=== PATIENT | male | born 1950 | race African-American/Black ===

== ENCOUNTER 2017-05-16 12:10 | Day surgery (SDC) | payer OTHER ==
[2017-05-15 14:57] VITALS: BMI 32.8
[2017-05-16 12:32] LABS: BASO % 0.7 % (0-2.0); EOS % 3.8 % (0-4.5); HEMATOCRIT 51.2 % (35.4-49); HEMOGLOBIN 16.5 GM/dL (11.7-16.9); LYMPH % 15.6 % (8-40); MCH 30.4 pg (25.7-33.7); MCHC 32.3 g/dl (32.0-35.9); MEAN PLT VOLUME 9.2 fl (7.5-11.1); MONO % 8.5 % (3.8-10.2); NEUT % 71.4 % (42.8-82.8); PLATELET COUNT 150 K/MM3 (134-434); RBC 5.44 M/mm3 (4.00-5.60); RDW 14.5 % (11.9-15.9); WHITE BLOOD COUNT 7.8 K/mm3 (4.0-10.0)
[2017-05-16 12:47] LABS: INR 1.06 (0.82-1.09)
[2017-05-16 13:09] VITALS: TEMP 98.2
[2017-05-16 17:43] VITALS: BP 114/70; PULSE 70
--- NOTE | 2017-05-18 11:59 | PATH ---
Cytology Non-Gynecological Report Patient Name: KIRSTY TORRES [facility]. Rec. #: [id number] /Age/Gender: 1950 (Age: 66) / M Account: [id number] Location: RADIOLOGY Taken: 05/16/2017 Received: 05/17/2017 Reported: 05/18/2017 Physicians: Chana August M.D. Specimen(s) Received RENAL CYST FLUID Clinical History Renal cyst Final Diagnosis RENAL CYST, ASPIRATION: SATISFACTORY FOR EVALUATION. BENIGN (NO MALIGNANT CELLS IDENTIFIED. MARKEDLY HYPOCELLULAR SPECIMEN WITH SCANT BENIGN EPITHELIAL CELLS, ALONG WITH RED BLOOD CELLS AND WHITE BLOOD CELLS. Comment: Recommend correlation with clinical and radiologic findings and follow up as clinically indicated. Electronically Signed Rafat George M.D. Gross Description Approximately 50 cc of yellow fluid received fixed in 50% alcohol. Two cytofunnels and one cellblock prepared.
== END 2017-05-16 16:30 | disposition home or self-care (01) ==
LOC: JRADIR 12:10
PROVIDERS: ATTEND Urology
PROC: 0T903ZX Drainage of Right Kidney, Percutaneous Approach, Diagnostic (ICD-10-PCS; principal; 2017-05-16)
DX: N28.1 Cyst of kidney, acquired (principal)
CPT/HCPCS: 10022; 36415; 50390; 76098-TC-FY; 77012-TC; 82565; 85025; 85610; 87070; 87075; 87205; 87899; 88108

== ENCOUNTER 2022-09-21 04:44 | Day surgery (SDC) | payer OTHER ==
[2022-09-15 15:45] VITALS: BMI 38.3
[2022-09-21 08:50] LABS: BASO % 0.6 % (0-2.0); EOS % 3.2 % (0-4.5); HEMOGLOBIN 16.2 GM/dL (11.7-16.9); LYMPH % 13.9 % (8-40); MCH 31.5 pg (25.7-33.7); MCHC 33.7 g/dl (32.0-35.9); MEAN CELL VOLUME 93.4 fl (80-96); MEAN PLT VOLUME 9.6 fl (7.5-11.1); MONO % 8.2 % (3.8-10.2); NEUT % 74.1 % (42.8-82.8); PLATELET COUNT 161 10^3/uL (134-434); RBC 5.14 M/mm3 (4.00-5.60); RDW 14.3 % (11.9-15.9); WHITE BLOOD COUNT 8.6 K/mm3 (4.0-10.0)
[2022-09-21 08:56] LABS: INR 1.15 (0.83-1.09); PROTHROMBIN TIME (PATIENT) 13.3 SEC (9.7-13.0)
[2022-09-21 12:00] VITALS: RESP 18
[2022-09-21 12:37] VITALS: BP 120/80; PULSE 68; TEMP 98
== END 2022-09-21 13:27 | disposition home or self-care (01) ==
LOC: JRADIR 04:44
PROVIDERS: ATTEND Urology
PROC: 0T903ZX Drainage of Right Kidney, Percutaneous Approach, Diagnostic (ICD-10-PCS; principal; 2022-09-21)
DX: N28.1 Cyst of kidney, acquired (principal)
CPT/HCPCS: 36415; 50390; 77012-TC; 85025; 85610; 87070; 87075; 87102; 87116; 87205; 87206; 87210; 88173; 88305-TC